=== PATIENT | female | born 1985 | race African-American/Black ===

== ENCOUNTER 2018-02-11 11:06 | Emergency (ER) | payer OTHER ==
[~2018-02-11] VITALS: Ht 175.3 cm; Wt 104.3 kg
[2018-02-11] MEDS ORDERED: IV NORMAL SALINE 1,000ML 1,000 ML IV SCH (11:15)
[2018-02-11 11:43] LABS: BASO % 1 % (0-3); EOS % 0 % (0-3); HEMATOCRIT 34.4 % (36.0-47.0); HEMOGLOBIN 11.4 g/dL (12.0-15.5); LYMPH # 1.1 x10^3/uL (1.0-4.8); LYMPH % 21 % (24-48); MEAN CORPUSCULAR HEMOGLOBIN 28 pg (25-35); MEAN CORPUSCULAR HGB CONC 33 g/dL (31-37); MEAN CORPUSCULAR VOLUME 85 fL (79-100); MONO # 0.4 x10^3/uL (0.0-1.1); MONO % 8 % (0-9); NEUT # 3.6 x10^3uL (1.8-7.7); NEUT % 70 % (31-73); PLATELET COUNT 286 x10^3/uL (140-400); RED BLOOD COUNT 4.04 x10^6/uL (3.50-5.40); RED CELL DISTRIBUTION WIDTH 14.9 % (11.5-14.5); WHITE BLOOD COUNT 5.1 x10^3/uL (4.0-11.0)
[2018-02-11] MEDS ORDERED: ONDANSETRON PF 4 MG/2 ML VIAL. IV ONE (11:45)
[2018-02-11] MEDS ORDERED: KETOROLAC 30 MG/ML VIAL. IV ONE (12:00)
[2018-02-11 12:10] LABS: ALBUMIN 3.5 g/dL (3.4-5.0); CALCIUM 8.3 mg/dL (8.5-10.1); CREATININE 0.8 mg/dL (0.6-1.0); GFR 99.4; POTASSIUM 3.8 mmol/L (3.5-5.1); TOTAL BILIRUBIN 0.2 mg/dL (0.2-1.0); TOTAL PROTEIN 7.1 g/dL (6.4-8.2)
[2018-02-11 12:23] LABS: BILIRUBIN,URINE NEG (NEG); CLARITY,URINE CLEAR; COLOR,URINE YELLOW; GLUCOSE,URINE NEG (NEG)
[2018-02-11 12:24] LABS: BACTERIA,URINE MOD /HPF (0-FEW); NITRITE,URINE NEG (NEG); RBC,URINE 0 /HPF (0-2); SQUAMOUS EPITHELIAL CELL,UR MOD /LPF; UROBILINOGEN,URINE 0.2 mg/dL (0.2 mg/dL); WBC,URINE 0 /HPF (0-4)
--- NOTE | 2018-02-11 12:39 | PHYS DOC ---
Past History Past Medical History: No Pertinent History Past Surgical History: Tubal ligation Alcohol Use: Occasionally Drug Use: None Adult General Chief Complaint Chief Complaint: NAUSEA/VOMITING/DIARRHEA HPI HPI 32-year-old female patient without medical problem states she ate sushi 2-3 days ago and had a large amount of vomiting after eating the food and felt dizzy for the last couple days. Patient states this morning she had more than 10 episodes of vomiting and 10 episodes of nonbloody diarrhea generalized weakness and upper abdominal discomfort. Patient denies sick contact, fever and chills, headache, palpitation, shortness of breath, focal neuro deficit, fever and chills, urinary symptoms, . Patient states she has discomfort sitting in her chest with episodes of vomiting. Review of Systems Review of Systems Constitutional: Denies fever or chills , reports generalized weakness[] Eyes: Denies change in visual acuity, redness, or eye pain [] HENT: Denies nasal congestion or sore throat [] Respiratory: Denies cough or shortness of breath [] Cardiovascular: No additional information not addressed in HPI [] GI: Reports abdominal pain, nausea, vomiting, diarrhea [] : Denies dysuria or hematuria [] Musculoskeletal: Denies back pain or joint pain [] Integument: Denies rash or skin lesions [] Neurologic: Denies headache, focal weakness or sensory changes reports dizziness [] Endocrine: Denies polyuria or polydipsia [] All other systems were reviewed and found to be within normal limits, except as documented in this note. Current Medications Current Medications Current Medications Medications (Trade) Dose Ordered Sig/Mary Start Time Stop Time Status Last Admin Dose Admin Ketorolac Tromethamine (Toradol) 30 mg 1X ONCE 02/11/18 12:00 02/11/18 12:01 02/11/18 11:44 30 MG Ondansetron HCl (Zofran) 4 mg 1X ONCE 02/11/18 11:45 02/11/18 11:46 DC 02/11/18 11:21 4 MG Sodium Chloride 1,000 ml @ 100 mls/hr Q10H 02/11/18 11:15 02/11/18 21:14 02/11/18 11:21 100 MLS/HR Allergies Allergies Allergies Coded Allergies Type Severity Reaction Last Updated Verified No Known Drug Allergies 08/20/16 No Physical Exam Physical Exam Constitutional: Well developed, well nourished, other rate distress, non-toxic appearance. [] HENT: Normocephalic, atraumatic, bilateral external ears normal, oropharynx dry , no oral exudates, nose normal. [] Eyes: PERRLA, EOMI, conjunctiva normal, no discharge. [] Neck: Normal range of motion, no tenderness, supple, no stridor. [] Cardiovascular:Heart rate regular rhythm, no murmur [] Lungs & Thorax: Bilateral breath sounds clear to auscultation [] Abdomen: Bowel sounds normal, soft, no tenderness, no masses, no pulsatile masses. [] Skin: Warm, dry, no erythema, no rash. [] Back: No tenderness, no CVA tenderness. [] Extremities: No tenderness, no cyanosis, no clubbing, ROM intact, no edema. [] Neurologic: Alert and oriented X 3, normal motor function, normal sensory function, no focal deficits noted. [] Psychologic: Affect normal, judgement normal, mood normal. [] Current Patient Data Vital Signs Vital Signs Date Time Temp Pulse Resp B/P (MAP) Pulse Ox O2 Delivery O2 Flow Rate FiO2 02/11/18 11:36 98.1 71 18 99 Room Air Lab Results Laboratory Tests Test 02/11/18 11:18 White Blood Count 5.1 x10^3/uL (4.0-11.0) Red Blood Count 4.04 x10^6/uL (3.50-5.40) Hemoglobin 11.4 g/dL (12.0-15.5) L Hematocrit 34.4 % (36.0-47.0) L Mean Corpuscular Volume 85 fL (79-100) Mean Corpuscular Hemoglobin 28 pg (25-35) Mean Corpuscular Hemoglobin Concent 33 g/dL (31-37) Red Cell Distribution Width 14.9 % (11.5-14.5) H Platelet Count 286 x10^3/uL (140-400) Neutrophils (%) (Auto) 70 % (31-73) Lymphocytes (%) (Auto) 21 % (24-48) L Monocytes (%) (Auto) 8 % (0-9) Eosinophils (%) (Auto) 0 % (0-3) Basophils (%) (Auto) 1 % (0-3) Neutrophils # (Auto) 3.6 x10^3uL (1.8-7.7) Lymphocytes # (Auto) 1.1 x10^3/uL (1.0-4.8) Monocytes # (Auto) 0.4 x10^3/uL (0.0-1.1) Eosinophils # (Auto) 0.0 x10^3/uL (0.0-0.7) Basophils # (Auto) 0.0 x10^3/uL (0.0-0.2) EKG EKG EKG interpreted by me. EKG at 1131 showed normal sinus rhythm at rate of 79, no specific EKG abnormalities[] Radiology/Procedures Radiology/Procedures [] Course & Med Decision Making Course & Med Decision Making Pertinent Labs reviewed. (See chart for details) Evaluation of patient in ER showed 32-year-old female patient complaining of dizziness and nausea and vomiting and diarrhea. Patient had unremarkable physical exam except for moderate distress of dizziness and nausea and dry oral mucosa. Patient treated with IV fluid and Zofran and Toradol and felt better. Patient tolerated oral intake. Labs was unremarkable. Patient ambulated without problem but still complaining of some dizziness and nausea. Patient instructed to continue liquid diet and increase fluid intake. Plan discharge patient home with prescription of Zofran and Zantac. She didn't want to have pain medication for home or in ER. Dragon Disclaimer Dragon Disclaimer This electronic medical record was generated, in whole or in part, using a voice recognition dictation system. Departure Departure: Impression: Primary Impression: Acute gastroenteritis Additional Impression: Dizziness Disposition: HOME, SELF-CARE (At 1343) Condition: IMPROVED Referrals: FRANKLIN ELIZABETH APRN (PCP) Patient Instructions: Dizziness, Viral Gastroenteritis Additional Instructions: Drink plenty of liquids Follow-up with your primary care physician in 3-5 days Return to ER if not getting better Do not eat solid food for the next 24 hours Scripts Ranitidine Hcl (ZANTAC) 150 Mg Tablet 1 TAB PO BID, #30 TAB 3 Refills Prov: ROMAIN HOROWITZ MD 02/11/18 Ondansetron (ZOFRAN ODT) 4 Mg Tab.rapdis 1 TAB SL Q8HRS, #15 TAB Prov: ROMAIN HOROWITZ MD 02/11/18 Problem Qualifiers ROMAIN HOROWITZ MD Feb 11, 2018 12:39
[2018-02-11] MEDS ORDERED: IV NORMAL SALINE 1,000ML 1,000 ML IV ONE (12:45)
[2018-02-11] MEDS ORDERED: RANI150T6 PO (13:45)
[2018-02-11] MEDS ORDERED: ONDA4TAB10 SL (13:45)
[2018-02-11 13:59] VITALS: BP 135/68
--- NOTE | 2018-02-11 14:26 | EKG ---
[address] [address] Test Date: 2018-02-11 Test Time: 11:31:48 Pat Name: DARIEL RUSS Department: Room: Gender: F [employer] Work[employer]: : 1985 Requested By: ROMAIN HOROWITZ Order Number: [id number] Reading MD: Mitul Keane MD Measurements Intervals [place] Rate: 79 P: 0 SD: 170 QRS: 58 QRSD: 78 T: 40 QT: 388 QTc: 451 Interpretive Statements SINUS RHYTHM Electronically Signed On 02-16-2018 15:27:35 CDT by Mitul Keane MD
== END 2018-02-11 14:00 | disposition home or self-care (01) ==
LOC: ER 11:06
DX: K52.9 Noninfective gastroenteritis and colitis, unspecified (principal); R42 Dizziness and giddiness
CPT/HCPCS: 36415; 80053; 81001; 81025; 83690; 84484; 85025; 87086; 93005; 96361; 96374; 96375; 99285; J1885; J2405; J7030